=== PATIENT | male | born 1990 ===

== ENCOUNTER 2016-07-10 13:12 | Emergency (ER) | payer MEDICAID ==
[2016-07-10] MEDS ORDERED: Ipratropium 0.02% Inhal Soln (0.5 mg/2.5 ml) UD IH STA ×2 (13:24)
[2016-07-10] MEDS ORDERED: guaiFENesin 200 mg/10 ml Syrup UD PO STA (13:24)
[2016-07-10] MEDS ORDERED: Levalbuterol 1.25 MG/3 ML Inhal Soln UD IH STA ×3 (13:24→16:11)
[2016-07-10 13:28] VITALS: TEMP 98.8
--- NOTE | 2016-07-10 13:31 | ED PDOC ---
Arrival/HPI - General Time Seen by Provider: 07/10/16 13:19 Historian: Patient - History of Present Illness Narrative History of Present Illness (Text): 07/10/16 13:33 A 25 year old male, whose past medical history includes asthma, presents to the emergency department complaining of shortness of breath and cough and chest tightness that feels like previous asthma symptoms, about 2 hours ago. Patient reports some nausea, runny nose and allergies but denies any fever, vomiting, abdominal pain or any other complaints at this time. Patient notes he is a smoker, but denies any drug use. Time/Duration: 1-3 hours Symptom Onset: Sudden Symptom Course: Unchanged Activities at Onset: Rest Context: Home Associated Symptoms (Text): nausea, runny nose Past Medical History - Provider Review Nursing Documentation Reviewed: Yes Family/Social History - Physician Review Nursing Documentation Reviewed: Yes Family/Social History: No Known Family HX Allergies/Home Meds Allergies/Adverse Reactions: Allergies No Known Allergies Allergy (Verified 07/10/16 13:28) Review of Systems - Physician Review All systems were reviewed & negative as marked: Yes - Review of Systems Constitutional: absent: Fevers ENT: Rhinorrhea Respiratory: SOB, Cough Cardiovascular: Other (chest tightness) Gastrointestinal: Nausea. absent: Abdominal Pain, Vomiting Musculoskeletal: Back Pain (chronic) Physical Exam Vital Signs Reviewed: Yes Vital Signs Temp Pulse Resp BP Pulse Ox 07/10/16 15:13 102 H 18 125/71 97 07/10/16 13:26 22 07/10/16 13:24 98.8 F 122 H 20 130/67 100 07/10/16 13:13 22 Temperature: Afebrile Blood Pressure: Normal Pulse: Tachycardic Respiratory Rate: Normal Appearance: Positive for: Well-Appearing, Non-Toxic, Comfortable Pain Distress: None Mental Status: Positive for: Alert and Oriented X 3 - Systems Exam Head: Present: Atraumatic, Normocephalic Pupils: Present: PERRL Extroacular Muscles: Present: EOMI Conjunctiva: Present: Normal Mouth: Present: Moist Mucous Membranes Neck: Present: Normal Range of Motion Respiratory/Chest: Present: Decreased Breath Sounds, Other (slightly diminished air entry) Cardiovascular: Present: Tachycardic. No: Murmurs Abdomen: Present: Normal Bowel Sounds. No: Tenderness, Distention, Peritoneal Signs Back: Present: Normal Inspection Upper Extremity: Present: Normal Inspection. No: Cyanosis, Edema Lower Extremity: Present: Normal Inspection. No: Edema Neurological: Present: GCS=15, CN II-XII Intact, Speech Normal Skin: Present: Warm, Dry, Normal Color. No: Rashes Psychiatric: Present: Alert, Oriented x 3, Normal Insight, Normal Concentration Medical Decision Making ED Course and Treatment: 07/10/16 13:30 Impression: A 25 year old male with shortness of breath, cough and chest tightness. Differential Diagnosis included but are not limited to: asthma exacerbation vs. allergies vs. bronchitis Plan: -- chest xray -- Atrovent, Robitussin, Xopenex, Prednisone -- Reassess and disposition Progress Notes: Chest X-ray: Creator : Raghavendra Willams MD 07/10/2016 14:53 IMPRESSION: No focal airspace opacity. 07/10/16 16:41 Patient later complained of his chronic low back pain acting up - given toradol and diazepam and reports improvement. Respiratory - christianson, the patient feels much better with good air entry now and lungs are CTA b/L - ok for d.c on prednisone and albuterol as well as nsaid and muscle relaxant for back. - RAD Interpretation Radiology Orders: 07/10/16 13:25 CHEST TWO VIEWS (PA/LAT) [RAD] Stat - Medication Orders Current Medication Orders: Discontinued Medications Diazepam (Valium) 5 mg PO ONCE ONE Stop: 07/10/16 15:43 Last Admin: 07/10/16 16:17 Dose: 5 mg Guaifenesin (Robitussin) 400 mg PO ONCE STA Stop: 07/10/16 13:25 Last Admin: 07/10/16 13:30 Dose: 400 mg Ipratropium [place] (Atrovent) 0.5 mg IH STAT STA Stop: 07/10/16 13:25 Last Admin: 07/10/16 13:30 Dose: 0.5 mg Ipratropium [place] (Atrovent) 0.5 mg IH STAT STA Stop: 07/10/16 13:25 Last Admin: 07/10/16 13:30 Dose: 0.5 mg Ketorolac Tromethamine (Toradol) 60 mg IM STAT STA Stop: 07/10/16 15:43 Last Admin: 07/10/16 16:16 Dose: 60 mg Levalbuterol HCl (Xopenex) 1.25 mg IH STAT STA Stop: 07/10/16 13:25 Last Admin: 07/10/16 13:40 Dose: 1.25 mg Levalbuterol HCl (Xopenex) 1.25 mg IH STAT STA Stop: 07/10/16 13:25 Last Admin: 07/10/16 13:40 Dose: 1.25 mg Levalbuterol HCl (Xopenex) 1.25 mg IH STAT STA Stop: 07/10/16 16:12 Last Admin: 07/10/16 16:32 Dose: 1.25 mg Prednisone (Prednisone Tab) 40 mg PO STAT STA Stop: 07/10/16 13:25 Last Admin: 07/10/16 13:56 Dose: 40 mg - Scribe Statement The provider has reviewed the documentation as recorded by the Dia Joyce Provider Scribe Attestation: All medical record entries made by the Ledyibcatia were at my direction and personally dictated by me. I have reviewed the chart and agree that the record accurately reflects my personal performance of the history, physical exam, medical decision making, and the department course for this patient. I have also personally directed, reviewed, and agree with the discharge instructions and disposition. Disposition/Present on Arrival - Present on Arrival Any Indicators Present on Arrival: No - Disposition Have Diagnosis and Disposition been Completed?: Yes Diagnosis: Asthma exacerbation, Back strain Disposition: HOME/ ROUTINE Disposition Time: 16:45 Patient Plan: Discharge Condition: GOOD Discharge Instructions (ExitCare): Asthma (ED), Acute Low Back Pain (ED), How to Stop Smoking (ED) Additional Instructions: Avoid heavy lifting. Take the medications as prescribed. Stop smoking. Follow up with your primary care doctor. Return to the emergency department if any new concerning symptoms. Prescriptions: Albuterol 0.083% [Albuterol 0.083% Inhal [place] (2.5 mg/3 ml) UD] 2.5 mg IH Q4H PRN #25 neb PRN Reason: Shortness Of Breath Albuterol HFA [Ventolin HFA 90 mcg/actuation (8 g)] 2 puff IH Q4H #1 inhaler Baclofen [Lioresal] 1 tab PO TID PRN #15 tab PRN Reason: Pain, Moderate (4-7) Naproxen [Naprosyn] 500 mg PO BID PRN #20 tab PRN Reason: Pain predniSONE [Prednisone] 2 tab PO DAILY #10 tab Referrals: Ari Askew MD [Primary Care Provider] - Follow up with primary Forms: WORK NOTE
--- NOTE | 2016-07-10 14:52 | RAD ---
HISTORY: sob COMPARISON: No prior. TECHNIQUE: Chest PA and lateral FINDINGS: LUNGS: No focal airspace opacity. PLEURA: No significant pleural effusion identified. No pneumothorax apparent. CARDIOVASCULAR: Normal. OSSEOUS STRUCTURES: No significant abnormalities. VISUALIZED UPPER ABDOMEN: Normal. OTHER FINDINGS: None. IMPRESSION: No focal airspace opacity.
[2016-07-10 15:25] VITALS: RESP 18
[2016-07-10 17:09] VITALS: BP 123/68; PULSE 91; O2SAT 98
== END 2016-07-10 17:26 | disposition home or self-care (01) ==
LOC: MERGE 13:12 → ED 13:12
DX: J45.901 Unspecified asthma with (acute) exacerbation (principal); S39.012A Strain of muscle, fascia and tendon of lower back, initial encounter; X58.XXXA Exposure to other specified factors, initial encounter; Y92.009 Unspecified place in unspecified non-institutional (private) residence as the place of occurrence of the external cause
CPT/HCPCS: 71020; 96372; 99285; J1885

== ENCOUNTER 2017-04-18 00:50 | Emergency (ER) | payer MEDICAID ==
[2017-04-18 01:15] VITALS: BP 121/79; PULSE 92; RESP 18; TEMP 100.3; O2SAT 100
[2017-04-18] MEDS ORDERED: Sodium Chloride 0.9% 500 ML IV STA (01:59)
--- NOTE | 2017-04-18 01:59 | ED PDOC ---
Arrival/HPI - General Historian: Patient EM Caveat: Unstable Vital Signs - History of Present Illness Time/Duration: > week Symptom Onset: Gradual Symptom Course: Unchanged Quality: Aching Severity Level: Mild Activities at Onset: Rest, Light Context: Home, Work <Hina Hannon - Last Filed: 04/18/17 02:06> <Valdo Kamara - Last Filed: 04/18/17 03:46> - General Chief Complaint: Medical Clearance Time Seen by Provider: 04/18/17 01:25 - Critical Care Narrative Critical Care (Text): 04/18/17 01:53 Pt is a 26 year old male c/o subjective fever, body aches, vomiting and sore throat over the past week and half with no change in symptoms. Pt states he not been able to keep food down for long and continues to have general abdominal pain without radiation of pain. Denies chest pain, shortness of breath, diarrhea , change in urine or bowel. Did not receive the flu vaccine this year. PMD is in [place], [place] 04/18/17 02:06 (Hina Hannon) Past Medical History - Provider Review Nursing Documentation Reviewed: Yes - Travel History Have you recently traveled outside [place] w/in the past 3 mons?: No - Past History Past History: No Previous - Infectious Disease Hx of Infectious Diseases: None - Pulmonary Hx Asthma: Yes - Neurological Hx Neurological Disorder: No - HEENT Hx HEENT Disorder: No - Renal Hx Renal Disorder: No - Endocrine/Metabolic Hx Endocrine Disorders: No - Hematological/Oncological Hx Blood Disorders: No - Integumentary Hx Dermatological Disorder: No - Musculoskeletal/Rheumatological Hx Musculoskeletal Disorders: No - Gastrointestinal Other/Comment: Stomach virus - Genitourinary/Gynecological Hx Genitourinary Disorders: No - Psychiatric Hx Psychophysiologic Disorder: No Hx Substance Use: Yes (opiates x2 days ago) - Anesthesia Hx Anesthesia: No <Hina Hannon - Last Filed: 04/18/17 02:06> Family/Social History - Physician Review Nursing Documentation Reviewed: Yes Family/Social History: Unknown Family HX Smoking Status: Light Smoker < 10 Cigarettes Daily Hx Alcohol Use: Yes Frequency of alcohol use: Socially Hx Substance Use: Yes (opiates x2 days ago) <Hina Hannon - Last Filed: 04/18/17 02:06> Allergies/Home Meds <ParvezHina - Last Filed: 04/18/17 02:06> <Valdo Kamara - Last Filed: 04/18/17 03:46> Allergies/Adverse Reactions: Allergies No Known Allergies Allergy (Verified 04/18/17 01:09) Review of Systems - Physician Review All systems were reviewed & negative as marked: Yes - Review of Systems Constitutional: Fatigue Eyes: Normal ENT: Normal Respiratory: Cough Cardiovascular: Normal Gastrointestinal: Abdominal Pain, Nausea, Vomiting Genitourinary Male: Normal Musculoskeletal: Normal Skin: Normal Neurological: Normal Endocrine: Normal Hemo/Lymphatic: Normal Psychiatric: Normal <ParvezZeyneph L - Last Filed: 04/18/17 02:06> Physical Exam Vital Signs Reviewed: Yes Temperature: Febrile Blood Pressure: Normal Pulse: Regular Respiratory Rate: Normal Appearance: Positive for: Non-Toxic, Uncomfortable Pain Distress: Mild Mental Status: Positive for: Alert and Oriented X 3 - Systems Exam Head: Present: Atraumatic, Normocephalic Extroacular Muscles: Present: EOMI Conjunctiva: Present: Normal Mouth: Present: Moist Mucous Membranes Pharnyx: Present: ERYTHEMA Neck: Present: Normal Range of Motion Respiratory/Chest: Present: Clear to Auscultation, Good Air Exchange. No: Respiratory Distress, Accessory Muscle Use Cardiovascular: Present: Regular Rate and Rhythm, Normal S1, S2. No: Murmurs Abdomen: Present: Tenderness, Normal Bowel Sounds, Guarding. No: Distention, Peritoneal Signs Back: Present: Normal Inspection Upper Extremity: Present: Normal Inspection. No: Cyanosis, Edema Lower Extremity: Present: Normal Inspection. No: Edema Neurological: Present: GCS=15, CN II-XII Intact, Speech Normal Skin: Present: Warm, Dry, Normal Color. No: Rashes Psychiatric: Present: Alert, Oriented x 3, Normal Insight, Normal Concentration <ParvezZeynephenok Humphrey - Last Filed: 04/18/17 02:06> Vital Signs Temp Pulse Resp BP Pulse Ox 04/18/17 01:10 100.3 F H 92 H 18 121/79 100 Medical Decision Making <ParvezHina L - Last Filed: 04/18/17 02:06> Reassessment Condition: Improved - Lab Interpretations I have reviewed the lab results: Yes <Valdo Kamara - Last Filed: 04/18/17 03:46> ED Course and Treatment: 04/18/17 01:56 Impression Pt is a 26 year old male c/o subjective fever, body aches, dry cough and vomiting over the past week and half. On exam, lungs clear to auscultation bilateral, voluntary guarding of abdomen on palpation, well nourished male Plan Labs, UA Tylenol for fever zofran 4 mg fluids Assess and dispo Progress Note (Hina Hannon) 04/18/17 02:43 you had symptoms of fever, body aches, vomiting and sore throat over the past week and half with no change in symptoms. not been able to keep food down for long and continues to have general abdominal pain without radiation of pain. Denies chest pain, shortness of breath, diarrhea, change in urine or bowel. Did not receive the flu vaccine this year. PMD is in [place], [place]. You were otherwise breathing easily, pink moist lips, talkling easily, good strength/ sensation, alert/oriented, walking easily, clear lungs, no abdomen tenderness, initial low grade fever temp 100.3 and repeat 98.9, stable heart rate 92, stable breathing rate 18, excellent oxygen level 100% room air, elevated blood pressure 121/79 which we recommend repeat in 2-3 days primary care office to determine further treatment, you have blood tests no infection count 5, stable blood level hemoglobin 11/platelets 204, stable chemistry, influenza test negative, tylenol, tamiflu, intravenous fluids, observation done in the ED with improvement, counselled to drink lots of fluids and thus discharged home. 1. Recommend rest. 2. Recommend tamiflu as directed fo flu-like symptoms. 3. Recommend follow-up primary care 2-3 days to review symptoms. 4. If any worsening pain, fever, chills, nausea, vomiting, difficulty breathing, numbness , loss of limb function, pain with urination or any medical condition then return to the ED. 04/18/17 03:31 04/18/17 03:31 04/18/17 03:32 04/18/17 03:43 (Abhilash Kamarain) - Lab Interpretations Lab Results: 04/18/17 01:40 04/18/17 01:40 Lab Results 04/18/17 02:50: Influenza Typ A,B (EIA) Negative for flu a/b 04/18/17 01:50: Urine Color Yellow, Urine Appearance Clear, Urine pH 6.0, Ur Specific [place] 1.025, Urine Protein Trace H, Urine Glucose (UA) Negative, Urine Ketones Trace H, Urine Blood Negative, Urine Nitrate Negative, Urine Bilirubin Negative, Urine Urobilinogen 1.0 H, Ur Leukocyte Esterase Negative, Urine RBC 0 - 2, Urine WBC 1 - 3, Ur Epithelial Cells 0 - 2, Urine Other Mucus 04/18/17 01:40: Sodium 143, Potassium 4.0, Chloride 106, Carbon Dioxide 26, Anion Gap 14, BUN 10, Creatinine 1.1, Est GFR ( Amer) > 60, Est GFR (Non- Af Amer) > 60, Random Glucose 106, Calcium 9.3, Total Bilirubin 0.8, AST 29, ALT 30, Alkaline Phosphatase 52, Total Protein 7.0, Albumin 4.1, Globulin 2.8, Albumin/Globulin Ratio 1.5 04/18/17 01:40: WBC 5.2, RBC 5.07, Hgb 11.7 L, Hct 37.0 L, MCV 73.0 L, MCH 23.1 L, MCHC 31.6, RDW 13.2, Plt Count 204, MPV 10.0, Gran % 66.7, Lymph % (Auto) 15.1 L, [place] % (Auto) 17.6 H, Eos % (Auto) 0.4 L, Baso % (Auto) 0.2, Gran # 3.44 , Lymph # (Auto) 0.8 L, [place] # (Auto) 0.9 H, Eos # (Auto) 0.0, Baso # (Auto) 0.01 - Medication Orders Current Medication Orders: Discontinued Medications Acetaminophen (Tylenol 325mg Tab) 975 mg PO STAT STA Stop: 04/18/17 01:34 Last Admin: 04/18/17 01:47 Dose: 975 mg Sodium Chloride (Sodium Chloride 0.9%) 500 mls @ 999 mls/hr IV .Q31M STA Stop: 04/18/17 02:29 Last Admin: 04/18/17 02:12 Dose: 999 mls/hr eMAR Start Stop Document 04/18/17 02:12 CNR (Rec: 04/18/17 02:12 CNR [id number]) Intravenous Solution Start Date 04/18/17 Start Time 02:12 Ondansetron HCl (Zofran Inj) 4 mg IVP STAT STA Stop: 04/18/17 02:00 Last Admin: 04/18/17 02:12 Dose: 4 mg IVP Administration Document 04/18/17 02:12 CNR (Rec: 04/18/17 02:12 CNR [id number]) Charges for Administration # of IVP Administrations 1 Disposition/Present on Arrival - Present on Arrival Any Indicators Present on Arrival: Yes History of DVT/PE: No History of Uncontrolled Diabetes: No Urinary Catheter: No History of Decub. Ulcer: No History Surgical Site Infection Following: None <Hina Hannon - Last Filed: 04/18/17 02:06> - Present on Arrival Any Indicators Present on Arrival: No - Disposition Have Diagnosis and Disposition been Completed?: Yes Disposition Time: 03:45 Patient Plan: Discharge <Valdo Kamara - Last Filed: 04/18/17 03:46> - Disposition Diagnosis: Viral syndrome Disposition: HOME/ ROUTINE Condition: IMPROVED Additional Instructions: you had symptoms of fever, body aches, vomiting and sore throat over the past week and half with no change in symptoms. not been able to keep food down for long and continues to have general abdominal pain without radiation of pain. Denies chest pain, shortness of breath, diarrhea, change in urine or bowel. Did not receive the flu vaccine this year. PMD is in [place], [place]. You were otherwise breathing easily, pink moist lips, talkling easily, good strength/ sensation, alert/oriented, walking easily, clear lungs, no abdomen tenderness, initial low grade fever temp 100.3 and repeat 98.9, stable heart rate 92, stable breathing rate 18, excellent oxygen level 100% room air, elevated blood pressure 121/79 which we recommend repeat in 2-3 days primary care office to determine further treatment, you have blood tests no infection count 5, stable blood level hemoglobin 11/platelets 204, stable chemistry, influenza test negative, tylenol, tamiflu, intravenous fluids, observation done in the ED with improvement, counselled to drink lots of fluids and thus discharged home. 1. Recommend rest. 2. Recommend tamiflu as directed fo flu-like symptoms. 3. Recommend follow-up primary care 2-3 days to review symptoms. 4. If any worsening pain, fever, chills, nausea, vomiting, difficulty breathing, numbness , loss of limb function, pain with urination or any medical condition then return to the ED. Prescriptions: Oseltamivir [Tamiflu] 75 mg PO Q12 5 Days #10 cap Forms: [facility] [facility] ([place]), WORK NOTE
[2017-04-18 02:00] LABS: BASO # 0.01 K/mm3 (0.0-2.0); BASO % 0.2 % (0.0-3.0); EOS % 0.4 % (1.5-5.0); GRAN # 3.44 (1.4-6.5); GRAN % 66.7 % (50.0-68.0); HEMOGLOBIN 11.7 g/dL (14.0-18.0); LYMPH # 0.8 (1.2-3.4); LYMPH % 15.1 % (22.0-35.0); MEAN CORPUSCULAR HEMOGLOBIN 23.1 pg (25.0-35.0); MEAN CORPUSCULAR HGB CONC 31.6 g/dl (31.0-37.0); MONO # 0.9 (0.1-0.6); MONO % 17.6 % (1.0-6.0); RBC 5.07 10^6/uL (3.5-6.1); RED CELL DISTRIBUTION WIDTH 13.2 % (11.5-14.5); WHITE BLOOD COUNT 5.2 10^3/ul (4.5-11.0)
[2017-04-18 02:06] LABS: URINE BILIRUBIN NEGATIVE (NEGATIVE); URINE BLOOD NEGATIVE (NEGATIVE); URINE GLUCOSE (UA) NEGATIVE (NEGATIVE); URINE LEUKOCYTE ESTERASE NEGATIVE Leu/uL (NEGATIVE); URINE NITRATE NEGATIVE (NEGATIVE); URINE PROTEIN TRACE mg/dL (<30 mg/dL)
[2017-04-18 02:08] LABS: URINE APPEARANCE CLEAR (CLEAR); URINE COLOR YELLOW (YELLOW)
[2017-04-18 02:13] LABS: ALB/GLOB RATIO 1.5 (1.1-1.8); ALBUMIN 4.1 g/dL (3.0-4.8); ALT/SGPT 30 U/L (7-56); AST/SGOT 29 U/L (17-59); BLOOD UREA NITROGEN 10 mg/dL (7-21); CALCIUM 9.3 mg/dL (8.4-10.5); GFR AFRICAN-AMERICAN > 60; GFR NON-AFRICAN AMERICAN > 60
[2017-04-18 02:23] LABS: URINE EPITHELIAL CELLS 0 - 2 /hpf (0-5); URINE RBC 0 - 2 /hpf (0-2)
== END 2017-04-18 03:56 | disposition home or self-care (01) ==
LOC: ED 00:50
DX: B34.9 Viral infection, unspecified (principal); F17.210 Nicotine dependence, cigarettes, uncomplicated
CPT/HCPCS: 80053; 81001; 85025; 87804; 96374; 99282; J2405; J7040

== ENCOUNTER 2017-11-12 17:51 | Emergency (ER) | payer MEDICAID ==
[2017-11-12] MEDS ORDERED: Sodium Chloride 0.9% 1,000 ML IV STA ×2 (18:20→18:41)
[2017-11-12 19:22] LABS: BASO # 0.01 K/mm3 (0.0-2.0); BASO % 0.2 % (0.0-3.0); EOS % 0.2 % (1.5-5.0); GRAN # 4.9 (1.4-6.5); GRAN % 86.2 % (50.0-68.0); HEMOGLOBIN 11.3 g/dL (14.0-18.0); LYMPH # 0.4 (1.2-3.4); LYMPH % 6.5 % (22.0-35.0); MEAN CELL VOLUME 73.2 fl (80.0-105.0); MEAN CORPUSCULAR HEMOGLOBIN 23.7 pg (25.0-35.0); MEAN CORPUSCULAR HGB CONC 32.4 g/dl (31.0-37.0); MEAN PLATELET VOLUME 9.7 fl (7.0-11.0); MONO # 0.4 (0.1-0.6); MONO % 6.9 % (1.0-6.0); RBC 4.77 10^6/uL (3.5-6.1); RED CELL DISTRIBUTION WIDTH 13.4 % (11.5-14.5); WHITE BLOOD COUNT 5.7 10^3/ul (4.5-11.0)
[2017-11-12 19:25] LABS: ALB/GLOB RATIO 1.3 (1.1-1.8); ALBUMIN 4.2 g/dL (3.0-4.8); ALT/SGPT 71 U/L (7-56); AST/SGOT 51 U/L (17-59); BLOOD UREA NITROGEN 11 mg/dL (7-21); CALCIUM 8.8 mg/dL (8.4-10.5); GFR NON-AFRICAN AMERICAN > 60; LIPASE 60 U/L (23-300)
[2017-11-12] MEDS ORDERED: Iohexol 350 MG/100 ML VIAL ONE (19:38)
--- NOTE | 2017-11-12 19:52 | ED PDOC ---
Arrival/HPI - General Chief Complaint: Substance Abuse Time Seen by Provider: 11/12/17 18:19 Historian: Patient - History of Present Illness Narrative History of Present Illness (Text): 11/12/17 19:44 27-year-old male presents today with nausea vomiting abdominal pain and body aches and fatigue. Patient admits to using heroin this morning. Patient states he was in a methadone clinic and left a methadone clinic 2 weeks ago. Patient states since then he has been intermittently using heroin. Patient states his last use was this morning. pt denies trauma or injury. Past Medical History - Provider Review Nursing Documentation Reviewed: Yes - Travel History Have you recently traveled outside [place] w/in the past 3 mons?: No - Past History Past History: No Previous - Infectious Disease Hx of Infectious Diseases: None - Pulmonary Hx Asthma: Yes - Neurological Hx Neurological Disorder: No - HEENT Hx HEENT Disorder: No - Renal Hx Renal Disorder: No - Endocrine/Metabolic Hx Endocrine Disorders: No - Hematological/Oncological Hx Blood Disorders: No - Integumentary Hx Dermatological Disorder: No - Musculoskeletal/Rheumatological Hx Musculoskeletal Disorders: No - Gastrointestinal Other/Comment: Stomach virus - Genitourinary/Gynecological Hx Genitourinary Disorders: No - Psychiatric Hx Psychophysiologic Disorder: No Hx Substance Use: Yes - Anesthesia Hx Anesthesia: No Family/Social History - Physician Review Nursing Documentation Reviewed: Yes Family/Social History: Unknown Family HX Smoking Status: Light Smoker < 10 Cigarettes Daily Hx Alcohol Use: Yes Hx Substance Use: Yes Substance used: heroin Allergies/Home Meds Allergies/Adverse Reactions: Allergies No Known Allergies Allergy (Verified 04/18/17 01:09) Review of Systems - Review of Systems Constitutional: Fatigue. absent: Fevers Respiratory: absent: SOB, Cough Cardiovascular: absent: Chest Pain, Palpitations Gastrointestinal: Abdominal Pain, Nausea, Vomiting Genitourinary Male: absent: Dysuria, Frequency Musculoskeletal: Arthralgias, Back Pain. absent: Neck Pain Skin: absent: Rash, Pruritis Neurological: absent: Headache, Dizziness Psychiatric: absent: Anxiety, Depression, Suicidal Ideation Physical Exam Vital Signs Reviewed: Yes Vital Signs Temp Pulse Resp BP Pulse Ox 11/12/17 18:32 98.7 F 80 20 127/77 100 11/12/17 17:58 99.7 F H 104 H 20 94/50 L 97 Temperature: Afebrile Blood Pressure: Hypotensive Pulse: Tachycardic Respiratory Rate: Normal Appearance: Positive for: Well-Appearing, Non-Toxic, Comfortable Pain Distress: None Mental Status: Positive for: Alert and Oriented X 3 - Systems Exam Head: Present: Atraumatic Mouth: Present: Moist Mucous Membranes Neck: Present: Normal Range of Motion Respiratory/Chest: Present: Clear to Auscultation, Good Air Exchange. No: Respiratory Distress, Accessory Muscle Use Cardiovascular: Present: Regular Rate and Rhythm, Normal S1, S2. No: Murmurs Abdomen: Present: Tenderness (minimal lower abdominal tenderness). No: Distention, Rebound, Guarding Back: Present: Normal Inspection Upper Extremity: Present: Normal ROM Lower Extremity: Present: Normal ROM Neurological: Present: GCS=15, Speech Normal Skin: Present: Warm, Dry, Normal Color. No: Rashes Psychiatric: Present: Alert, Oriented x 3 Medical Decision Making ED Course and Treatment: 11/12/17 20:33 27yr old male with bodyaches, abdominal pain, nausea/vomiting. hx of heroin use this morning. states he hasnt been going to methadone clinic for 2 weeks and thinks hes withdrawing. cbc; wnl cmp; wnl cxr; wnl lactate; 0.8 ekg; NSR at 83b/m no st elevations. normal axis normal intervals. 11/12/17 pt feeling much better. vitals stable. wants to go home. pt was seen by LYUDMILA scott and was given information to methadone clinics closer to his house. ct abd/pelvis; FINDINGS: Lung bases: Unremarkable. No mass. No consolidation. ABDOMEN: Liver: Unremarkable. No mass. Gallbladder and bile ducts: Unremarkable. No calcified stones. No ductal dilation. Pancreas: Unremarkable. No mass. No ductal dilation. Spleen: Unremarkable. No splenomegaly. Adrenals: Unremarkable. No mass. Kidneys and ureters: Unremarkable. No solid mass. No hydronephrosis. Stomach and bowel: Unremarkable. No obstruction. No mucosal thickening. PELVIS: Appendix: Normal appendix. Bladder: Unremarkable. No mass. Reproductive: Unremarkable as visualized. ABDOMEN and PELVIS: Intraperitoneal space: Unremarkable. No free air. No significant fluid collection. Bones/joints: No fracture. No dislocation. Soft tissues: Unremarkable. Vasculature: Unremarkable. No abdominal aortic aneurysm. Lymph nodes: Unremarkable. No enlarged lymph nodes. IMPRESSION: Normal abdomen and pelvis pt reassessment; non toxic well appearing; vitals stable. will d/c home with motrin and zofran. advised f/u with pmd, GI and methadone clinic. advised immediate return if symptoms worsen,persist or if new symptoms develop. Patient verbalizes understanding of discharge instructions and need for immediate followup. all aspects of this case were discussed the attending of record. impression; abdominal pain, substance abuse increase fluids tylenol every 4 hours as needed for pain/fever reduction motrin every 6 hours as needed for pain zofran every 8 hours as needed for nausea/vomiting. follow up with the primary care physician within the next 2 days follow up with the GI specialist within the next 2 days follow up with outpatient methadone clinic. return if symptoms worsen, persist or if new symptoms develop. - Lab Interpretations Lab Results: 11/12/17 19:10 11/12/17 19:10 Lab Results 11/12/17 20:14: pO2 53, VBG pH 7.40, VBG pCO2 44.0, VBG HCO3 27.3, VBG Total CO2 28.7 H, VBG O2 Sat (Calc) 92.1 H, VBG Base Excess 2.0, VBG Potassium 3.7, Glucose 143 H, Lactate 0.8, FiO2 21.0, Sodium 136.0, Chloride 104.0, Venous Blood Potassium 3.7 11/12/17 19:10: WBC 5.7, RBC 4.77, Hgb 11.3 L, Hct 34.9 L, MCV 73.2 L, MCH 23.7 L, MCHC 32.4, RDW 13.4, Plt Count 146, MPV 9.7, Gran % 86.2 H, Lymph % (Auto) 6.5 L, [place] % (Auto) 6.9 H, Eos % (Auto) 0.2 L, Baso % (Auto) 0.2, Gran # 4.90, Lymph # (Auto) 0.4 L, [place] # (Auto) 0.4, Eos # (Auto) 0.0, Baso # (Auto) 0.01 11/12/17 19:10: Sodium 138, Potassium 4.0, Chloride 102, Carbon Dioxide 25, Anion Gap 14, BUN 11, Creatinine 0.9, Est GFR ( Amer) > 60, Est GFR (Non- Af Amer) > 60, Random Glucose 109, Calcium 8.8, Total Bilirubin 1.2, AST 51, ALT 71 H, Alkaline Phosphatase 80, Total Protein 7.2, Albumin 4.2, Globulin 3.1 , Albumin/Globulin Ratio 1.3, Lipase 60 - RAD Interpretation Radiology Orders: 11/12/17 18:20 CHEST PORTABLE [RAD] Stat 11/12/17 18:29 ABD & PELVIS IV CONTRAST ONLY [CT] Stat - Medication Orders Current Medication Orders: Discontinued Medications Sodium Chloride (Sodium Chloride 0.9%) 1,000 mls @ 999 mls/hr IV .Q1H1M STA Stop: 11/12/17 19:41 Last Admin: 11/12/17 19:24 Dose: 999 mls/hr eMAR Start Stop Document 11/12/17 19:24 SUDO (Rec: 11/12/17 19:24 [id number] Intravenous Solution Start Date 11/12/17 Start Time 19:24 Ketorolac Tromethamine (Toradol) 30 mg IVP STAT STA Stop: 11/12/17 18:21 Last Admin: 11/12/17 19:13 Dose: 30 mg MAR Pain Assessment Document 11/12/17 19:13 SUDO (Rec: 11/12/17 19:14 [place] [id number]) Pain Reassessment Is this a pain reassessment? No Location Pain Location Body Site Generalized Description Description Constant IVP Administration Document 11/12/17 19:13 SUDO (Rec: 11/12/17 19:14 [place] [id number]) Charges for Administration # of IVP Administrations 1 Ondansetron HCl (Zofran Inj) 4 mg IVP STAT STA Stop: 11/12/17 18:21 Last Admin: 11/12/17 19:13 Dose: 4 mg IVP Administration Document 11/12/17 19:13 SUDO (Rec: 11/12/17 19:13 [id number] Charges for Administration # of IVP Administrations 1 Pantoprazole Sodium (Protonix Inj) 40 mg IVP STAT STA Stop: 11/12/17 18:21 Last Admin: 11/12/17 19:13 Dose: 40 mg IVP Administration Document 11/12/17 19:13 SUDOJ (Rec: 11/12/17 19:13 [place] [id number]) Charges for Administration # of IVP Administrations 1 Disposition/Present on Arrival - Present on Arrival Any Indicators Present on Arrival: No History of DVT/PE: No History of Uncontrolled Diabetes: No Urinary Catheter: No History of Decub. Ulcer: No History Surgical Site Infection Following: None - Disposition Have Diagnosis and Disposition been Completed?: Yes Diagnosis: Abdominal pain, Substance abuse Disposition: HOME/ ROUTINE Disposition Time: 18:30 Patient Plan: Discharge Patient Problems: Current Active Problems Problem Status Onset Abdominal pain Acute Substance abuse Acute Condition: GOOD Discharge Instructions (ExitCare): Acute Abdomen (Belly Pain) Additional Instructions: increase fluids tylenol every 4 hours as needed for pain/fever reduction motrin every 6 hours as needed for pain zofran every 8 hours as needed for nausea/vomiting. follow up with the primary care physician within the next 2 days follow up with the GI specialist within the next 2 days follow up with outpatient methadone clinic. return if symptoms worsen, persist or if new symptoms develop. Prescriptions: Famotidine [Pepcid] 20 mg PO DAILY #30 tab Ibuprofen [Motrin] 600 mg PO Q6H PRN #20 tab PRN Reason: pain/fever reduction Ondansetron [Zofran] 4 mg PO Q8H PRN #10 tab PRN Reason: Nausea/Vomiting Referrals: Jocelyn Lira MD [Medical Doctor] - Follow up with primary [facility] [Outside] - Follow up with primary Destiny Lucero MD [Medical Doctor] - Follow up with primary Forms: [facility] ([place]), WORK NOTE
[2017-11-12 20:23] LABS: VENOUS BLOOD GAS PO2 53 mm/Hg (30-55)
[2017-11-12 20:34] VITALS: TEMP 98.7; O2SAT 100
[2017-11-13] VITALS: BP 129/74; PULSE 85; RESP 18
--- NOTE | 2017-11-13 09:12 | RAD ---
Date of service: 11/12/2017 HISTORY: Abdominal pain COMPARISON: 07/10/2016. FINDINGS: LUNGS: The lungs are well inflated and clear. PLEURA: No significant pleural effusion identified, no pneumothorax apparent. CARDIOVASCULAR: Normal. OSSEOUS STRUCTURES: No significant abnormalities. VISUALIZED UPPER ABDOMEN: Normal. OTHER FINDINGS: None. IMPRESSION: No active pulmonary disease.
--- NOTE | 2017-11-13 10:28 | CT ---
Date of service: 11/12/2017 PROCEDURE: CT Abdomen and Pelvis with contrast HISTORY: abd pain COMPARISON: None. TECHNIQUE: Contrast dose: 100 cc of Omni 350 Radiation dose: Total exam DLP = 637 mGy-cm. This CT exam was performed using one or more of the following dose reduction techniques: Automated exposure control, adjustment of the mA and/or kV according to patient size, and/or use of iterative reconstruction technique. FINDINGS: LOWER THORAX: Unremarkable. LIVER: Unremarkable. No gross lesion or ductal dilatation. GALLBLADDER AND BILE DUCTS: Contracted gallbladder PANCREAS: Unremarkable. No gross lesion or ductal dilatation. SPLEEN: Unremarkable. ADRENALS: Unremarkable. No mass. KIDNEYS AND URETERS: Unremarkable. No hydronephrosis. No solid mass. VASCULATURE: Unremarkable. No aortic aneurysm. BOWEL: Unremarkable. No obstruction. No gross mural thickening. APPENDIX: Normal appendix. PERITONEUM: Unremarkable. No free fluid. No free air. LYMPH NODES: Unremarkable. No enlarged lymph nodes. BLADDER: Unremarkable. REPRODUCTIVE: Unremarkable. BONES: No acute fracture. OTHER FINDINGS: The report concurs with the preliminary [facility] report IMPRESSION: No acute findings
--- NOTE | 2017-11-13 15:23 | CARD ---
APPROVED REPORT Date of service: 11/12/2017 EKG Measurement Heart [id number] <Conclusion> Normal sinus rhythm Normal ECG
== END 2017-11-12 22:40 | disposition home or self-care (01) ==
LOC: ED 17:51
DX: F19.10 Other psychoactive substance abuse, uncomplicated (principal); R10.9 Unspecified abdominal pain
CPT/HCPCS: 71045; 74177; 80053; 82803; 83690; 85025; 93005; 96374; 96375; 99284; C9113; J1885; J2405; J7030; Q9967

== ENCOUNTER 2017-12-13 19:47 | Inpatient (IN) | payer MEDICAID ==
[2017-12-13] MEDS ORDERED: Vancomycin 500 mg Inj IVPB STA (20:29)
--- NOTE | 2017-12-13 20:33 | ED PDOC ---
Arrival/HPI - General Chief Complaint: Upper Extremity Problem/Injury Time Seen by Provider: 12/13/17 20:28 Historian: Patient - History of Present Illness Narrative History of Present Illness (Text): 12/13/17 20:58 27 year old male, whose past medical history includes IVDA(heroin), presents to the emergency department complaining of worsening left arm abscess for the past month associated with swelling and purulent drainage. Patient admits to injecting heroin to the left AC approximately 1.5 months ago before starting his drug rehab program. Patient reports taking medication for pain with no relief. Patient denies any fever, chills, chest pain, shortness of breath, nausea, vomiting, diarrhea, back pain, neck pain, headache, dizziness, or any other complaints. PMD: Dr. Henry Time/Duration: Other (month) Symptom Onset: Gradual Symptom Course: Worsening Activities at Onset: Light Context: Home Past Medical History - Provider Review Nursing Documentation Reviewed: Yes - Past History Past History: No Previous - Infectious Disease Hx of Infectious Diseases: None - Pulmonary Hx Asthma: Yes - Neurological Hx Neurological Disorder: No - HEENT Hx HEENT Disorder: No - Renal Hx Renal Disorder: No - Endocrine/Metabolic Hx Endocrine Disorders: No - Hematological/Oncological Hx Blood Disorders: No - Integumentary Hx Dermatological Disorder: No - Musculoskeletal/Rheumatological Hx Musculoskeletal Disorders: No - Gastrointestinal Other/Comment: Stomach virus - Genitourinary/Gynecological Hx Genitourinary Disorders: No - Psychiatric Hx Psychophysiologic Disorder: No Hx Substance Use: Yes (clean for 30 days) - Anesthesia Hx Anesthesia: No Family/Social History - Physician Review Nursing Documentation Reviewed: Yes Family/Social History: No Known Family HX Smoking Status: Light Smoker < 10 Cigarettes Daily Hx Alcohol Use: Yes Frequency of alcohol use: Few days per week Hx Substance Use: Yes (clean for 30 days) Substance used: heroin, cocaine, weed Allergies/Home Meds Allergies/Adverse Reactions: Allergies No Known Allergies Allergy (Verified 12/13/17 20:01) Review of Systems - Physician Review All systems were reviewed & negative as marked: Yes - Review of Systems Constitutional: absent: Fevers, Other (Chills) Respiratory: absent: SOB Cardiovascular: absent: Chest Pain Gastrointestinal: absent: Diarrhea, Nausea, Vomiting Musculoskeletal: absent: Back Pain, Neck Pain Skin: Abscess (left arm) Neurological: absent: Headache, Dizziness Physical Exam - Physical Exam Narrative Physical Exam (Text): Gen: VS reviewed, alert, well developed, well nourished, nontoxic, mild distress. ENT: normal pharynx. Eye: EOMI, PERRL. Neck: no JVD, supple, no adenopathy. CV: regular rate, regular rhythm, no rubs, no murmur, no gallops, S1, S2, pulses equal and strong. Pulm: no distress, clear to auscultation, no wheeze, no rhonchi, breath sounds equal, no rales. Abd: soft, nontender, no guarding, no rebound, no rigidity, normal bowel sounds. Ext: Large area of fluctuant that is at the proximal forearm with extensive area of induration extending up his arm just past the antecubital fossa. Decrease ROM to the left elbow secondary to pain. Warm and tender to touch. Active purulent drainage from an ulcer on the lateral AC area. no edema. Skin: good color, no rash, no cyanosis. Psych: responds appropriately to questions, normal affect. Neuro: oriented x 3, CN2-12 intact grossly, motor intact, sensation intact. Vital Signs Reviewed: Yes Vital Signs Temp Pulse Resp BP Pulse Ox 12/13/17 20:00 99.1 F 102 H 18 142/77 99 Temperature: Afebrile Blood Pressure: Normal Pulse: Tachycardic Respiratory Rate: Normal Medical Decision Making ED Course and Treatment: 12/13/17 20:28 Impression: 27 year old male presents complaining of worsening abscess associated with swelling and purulent drainage for the past month. Plan: -- VBG -- CT Upper Left with contrast -- Toradol, Vancomycin -- Blood culture, wound culture -- Reassess and disposition Prior Visits: Notes and results from previous visits were reviewed. Progress Notes: 12/13/17 20:30 Case discussed with certified surgical technologist who is aware and agrees to come down and consult patient. 12/13/17 23:26 patient seen for extensive arm abscess and cellulitis. no hard signs of nec fasc or compartment syndrome. patient remained stable throughout ED course. surgical consult accepted by dr. coffey and certified surgical technologist has seen the patient at bedside. xray of the arm requested as there is a concern for metallic foreign body seen on CT. patient to be npo after midnight and will need OR for I&D left upper arm abscess. - Critical Care Critical Care Minutes: Other (35 minutes critical care for critical illness and coordination of care) - Scribe Statement The provider has reviewed the documentation as recorded by the Ledyibcatia Medley Provider Scribe Attestation: All medical record entries made by the Scribe were at my direction and personally dictated by me. I have reviewed the chart and agree that the record accurately reflects my personal performance of the history, physical exam, medical decision making, and the department course for this patient. I have also personally directed, reviewed, and agree with the discharge instructions and disposition. Disposition/Present on Arrival - Present on Arrival Any Indicators Present on Arrival: No History of DVT/PE: No History of Uncontrolled Diabetes: No Urinary Catheter: No History of Decub. Ulcer: No History Surgical Site Infection Following: None - Disposition Have Diagnosis and Disposition been Completed?: Yes Diagnosis: Abscess of left arm Disposition: HOSPITALIZED Disposition Time: 23:29 Patient Plan: Admission Condition: STABLE Referrals: Ned Henry MD [Primary Care Provider] - Follow up with primary Forms: [facility] [employer] (Irish)
[2017-12-13] MEDS ORDERED: Vancomycin 1.5 GM in Sodium Chloride 0.9% 500 ML IVPB ONE (20:45)
[2017-12-13 21:10] LABS: VENOUS BLOOD GAS PO2 36 mm/Hg (30-55); VENOUS BLOOD PH 7.32 (7.32-7.43)
[2017-12-13 21:19] LABS: BLOOD UREA NITROGEN 15 mg/dL (7-21); CALCIUM 8.9 mg/dL (8.4-10.5); GFR NON-AFRICAN AMERICAN > 60
[2017-12-13 21:25] LABS: BASO # 0.02 K/mm3 (0.0-2.0); BASO % 0.2 % (0.0-3.0); EOS # 0.1 (0.0-0.7); EOS % 1.4 % (1.5-5.0); GRAN # 5.94 (1.4-6.5); GRAN % 65.8 % (50.0-68.0); HEMOGLOBIN 9.7 g/dL (14.0-18.0); LYMPH # 2.2 (1.2-3.4); LYMPH % 24.7 % (22.0-35.0); MEAN CELL VOLUME 71.9 fl (80.0-105.0); MEAN CORPUSCULAR HEMOGLOBIN 22.1 pg (25.0-35.0); MEAN CORPUSCULAR HGB CONC 30.8 g/dl (31.0-37.0); MEAN PLATELET VOLUME 9.6 fl (7.0-11.0); MONO # 0.7 (0.1-0.6); MONO % 7.9 % (1.0-6.0); RBC 4.38 10^6/uL (3.5-6.1); RED CELL DISTRIBUTION WIDTH 14.7 % (11.5-14.5)
[2017-12-13] MEDS ORDERED: Iohexol 350 MG/100 ML VIAL ONE (21:47)
--- NOTE | 2017-12-13 23:03 | CP.PCM.CON ---
<Zev Fuentes - Last Filed: 12/13/17 22:59> History of Present Illness - History of Present Illness History of Present Illness: General Surgery Consult Note for Dr. Graham This is a 27M with a PMH of polysubstance abuse, he has quit heroin one month ago. He reports that 2 weeks ago he developed an abscess on his left arm. He reports that it is not the first time this has happened. He reports that has has had fevers and chaills at home. It has been spontaneously draining for the past 2 days. PMH: Denies PSH: Denies ALL: Denies Social: + Tobacc, + Heroin, + Cocaine Review of Systems - Review of Systems Review of Systems: 12 point review of symtoms conducted and negative except for fevers chills and extremity pain and skin changes over the left upper extremity. Past Patient History - Infectious Disease Hx of Infectious Diseases: None - Past Social History Smoking Status: Light Smoker < 10 Cigarettes Daily - CARDIAC Hx Hypercholesterolemia: Yes - PULMONARY Hx Asthma: Yes - NEUROLOGICAL Hx Neurological Disorder: No - HEENT Hx HEENT Problems: No - RENAL Hx Chronic Kidney Disease: No - ENDOCRINE/METABOLIC Hx Endocrine Disorders: No - HEMATOLOGICAL/ONCOLOGICAL Hx Blood Disorders: No - INTEGUMENTARY Hx Dermatological Problems: No - MUSCULOSKELETAL/RHEUMATOLOGICAL Hx Musculoskeletal Disorders: No - GASTROINTESTINAL Other/Comment: Stomach virus - GENITOURINARY/GYNECOLOGICAL Hx Genitourinary Disorders: No - PSYCHIATRIC Hx Psychophysiologic Disorder: No Hx Substance Use: Yes (clean for 30 days) - SURGICAL HISTORY Hx Surgeries: No - ANESTHESIA Hx Anesthesia: No Meds Allergies/Adverse Reactions: Allergies Allergy/AdvReac Type Severity Reaction Status Date / Time No Known Allergies Allergy Verified 12/13/17 20:01 - Medications Medications: Current Medications Vancomycin HCl 1.5 gm/ Sodium (Chloride) 500 mls @ 167 mls/hr IVPB ONCE ONE Stop: 12/13/17 23:44 Last Admin: 12/13/17 21:16 Dose: 167 mls/hr Physical Exam - Constitutional Appears: Non-toxic, No Acute Distress - Head Exam Head Exam: ATRAUMATIC, NORMOCEPHALIC - Eye Exam Eye Exam: EOMI, Normal appearance - ENT Exam ENT Exam: Mucous Membranes Moist - Respiratory Exam Respiratory Exam: NORMAL BREATHING PATTERN - Cardiovascular Exam Cardiovascular Exam: +S1, +S2 - GI/Abdominal Exam GI & Abdominal Exam: Soft - Neurological Exam Neurological exam: Alert, Oriented x3 - Psychiatric Exam Psychiatric exam: Normal Affect, Normal Mood - Skin Skin Exam: Dry, Intact Results - Vital Signs Recent Vital Signs: Last Vital Signs Temp 99.1 F 12/13/17 20:00 Pulse 102 H 12/13/17 20:00 Resp 18 12/13/17 20:00 BP 142/77 12/13/17 20:00 Pulse Ox 99 12/13/17 20:00 - Labs Result Diagrams: 12/13/17 21:00 12/13/17 21:00 Labs: Laboratory Results - last 24 hr 12/13/17 12/13/17 12/13/17 21:00 21:00 21:00 WBC 9.0 D RBC 4.38 Hgb 9.7 L Hct 31.5 L MCV 71.9 L MCH 22.1 L MCHC 30.8 L RDW 14.7 H Plt Count 555 H MPV 9.6 Gran % 65.8 Lymph % (Auto) 24.7 [place] % (Auto) 7.9 H Eos % (Auto) 1.4 L Baso % (Auto) 0.2 Gran # 5.94 Lymph # (Auto) 2.2 [place] # (Auto) 0.7 H Eos # (Auto) 0.1 Baso # (Auto) 0.02 pO2 36 VBG pH 7.32 VBG pCO2 62.0 H VBG HCO3 31.9 H VBG Total CO2 33.8 H VBG O2 Sat (Calc) 68.9 H VBG Base Excess 4.0 H VBG Potassium 4.0 Sodium 139.0 140 Chloride 105.0 102 Glucose 92 Lactate 0.9 FiO2 21.0 Potassium 4.3 Carbon Dioxide 29 Anion Gap 13 BUN 15 Creatinine 1.0 Est GFR ( Amer) > 60 Est GFR (Non-Af Amer) > 60 Random Glucose 97 Calcium 8.9 Venous Blood Potassium 4.0 Assessment & Plan - Assessment and Plan (Free Text) Assessment: This is a 27M IVDA with a LUE abscess NPO past midnight OR in AM Continue ABX D/W Dr. Santos Fuentes <Rony Graham - Last Filed: 12/15/17 20:39> Results - Vital Signs Recent Vital Signs: Last Vital Signs Temp 98 F 10/18/18 14:00 Pulse 71 12/14/17 14:00 Resp 20 12/14/17 14:00 BP 129/64 12/14/17 14:00 Pulse Ox 99 12/14/17 14:00 - Labs Result Diagrams: 12/14/17 07:00 12/14/17 07:00 Labs: Laboratory Results - last 24 hr 12/14/17 07:00 HIV-1 Antibody TEST NOT PERFORMED HIV-2 Antibody TEST NOT PERFORMED HIV 1&2 Ag/Ab, 4th Gen Nonreactive Assessment & Plan - Assessment and Plan (Free Text) Plan: This consult done under my direct supervision Richard Graham MD FACS
--- NOTE | 2017-12-14 00:38 | CP.PCM.HP ---
<JosueBrent - Last Filed: 12/14/17 04:14> History of Present Illness - History of Present Illness History of Present Illness: Brent Salas, PGY-1 History and Physical for Hospitalist Service CC: L arm pain HPI: 27 year old male, with a PMHx of IVDA, polysubstance abuse (heroin, cocaine, marijuana) admitted for left arm abscess and cellulitis. Patient states that he noticed, what looked like a small pimple, on the anterolateral aspect of the proximal left forearm about 2 weeks ago. The area gradually became larger, erythematous, painful, and warm to touch. He rates pain as being 20/10. He reports applying warm compresses to the area for management, but experienced minimal improvement. 2 days ago, the area spontaneously began exuding purulent discharge and he developed associated fever and chills. Fever and chills resolved, but the area remained painful and continued to drain pus, prompting patient to present to the ED. Patient states that he drained a similar pimple like area on the anteripr proximal forearm 3 weeks ago, which resolved symptoms. At this time, he denies fever, chills, cough, congestion, N/V/D, palpitations, leg pain, change in urination. He reports unintentional weight loss of 20 pounds in 4-6 week time frame when he was using Heroin. No other acute complaints. Patient last used heroin 1.5 months ago, cocaine one week ago, and marijuana 2 days ago. Patient was going to methadone clinic, but stopped 10/29/2017. He has been going to [facility] [facility] in [place], a suboxone rehab program. He is prescribed suboxone on a weekly basis, taking 2 tablets a day. Today, patient took his morning suboxone dose only. PMHx: polysubstance abuse PSHx: denies Family Hx: denies Social hx: smokes a pack of cigarettes every 3 days, unemployed, no alcohol use PCP: none Present on Admission - Present on Admission Any Indicators Present on Admission: No Review of Systems - Review of Systems Review of Systems: 12 point ROS completed and negative except as described in HPI. Past Patient History - Infectious Disease Hx of Infectious Diseases: None - Past Social History Smoking Status: Light Smoker < 10 Cigarettes Daily - CARDIAC Hx Hypercholesterolemia: Yes - PULMONARY Hx Asthma: Yes - NEUROLOGICAL Hx Neurological Disorder: No - HEENT Hx HEENT Problems: No - RENAL Hx Chronic Kidney Disease: No - ENDOCRINE/METABOLIC Hx Endocrine Disorders: No - HEMATOLOGICAL/ONCOLOGICAL Hx Blood Disorders: No - INTEGUMENTARY Hx Dermatological Problems: No - MUSCULOSKELETAL/RHEUMATOLOGICAL Hx Musculoskeletal Disorders: No - GASTROINTESTINAL Other/Comment: Stomach virus - GENITOURINARY/GYNECOLOGICAL Hx Genitourinary Disorders: No - PSYCHIATRIC Hx Psychophysiologic Disorder: No Hx Substance Use: Yes (clean for 30 days) - SURGICAL HISTORY Hx Surgeries: No - ANESTHESIA Hx Anesthesia: No Meds Allergies/Adverse Reactions: Allergies Allergy/AdvReac Type Severity Reaction Status Date / Time No Known Allergies Allergy Verified 12/13/17 20:01 Physical Exam - Constitutional Appears: Well, Non-toxic, No Acute Distress - Head Exam Head Exam: ATRAUMATIC, NORMOCEPHALIC - Eye Exam Eye Exam: EOMI, Normal appearance Pupil Exam: PERRL - ENT Exam ENT Exam: Mucous Membranes Moist - Neck Exam Neck exam: Positive for: Full Rom. Negative for: Normal Inspection (tattoos), Tenderness - Respiratory Exam Respiratory Exam: Clear to Auscultation Bilateral, NORMAL BREATHING PATTERN. absent: Accessory Muscle Use, Chest Wall Tenderness, Rales, Rhonchi, Wheezes Additional comments: tattoos throughout chest - Cardiovascular Exam Cardiovascular Exam: RRR, +S1, +S2. absent: Clicks, Gallop, Rubs, Systolic Murmur - GI/Abdominal Exam GI & Abdominal Exam: Hypoactive Bowel Sounds, Soft. absent: Distended, Firm, Guarding, Rebound, Tenderness - Extremities Exam Additional comments: 4x6 inch abscess over anterior L bicep with yellow discharge 2x3 healed indurated abscess on R medial forearm - Back Exam Back exam: NORMAL INSPECTION. absent: CVA tenderness (L), CVA tenderness (R) - Neurological Exam Neurological exam: Alert, Oriented x3 - Psychiatric Exam Psychiatric exam: Normal Affect, Normal Mood - Skin Skin Exam: Dry, Normal Color, Warm Results - Vital Signs Recent Vital Signs: Last Vital Signs Temp 99.1 F 12/13/17 20:00 Pulse 102 H 12/13/17 20:00 Resp 18 12/13/17 20:00 BP 142/77 12/13/17 20:00 Pulse Ox 99 12/13/17 20:00 - Labs Result Diagrams: 12/13/17 21:00 12/13/17 21:00 Labs: Laboratory Results - last 24 hr 12/13/17 12/13/17 12/13/17 21:00 21:00 21:00 WBC 9.0 D RBC 4.38 Hgb 9.7 L Hct 31.5 L MCV 71.9 L MCH 22.1 L MCHC 30.8 L RDW 14.7 H Plt Count 555 H MPV 9.6 Gran % 65.8 Lymph % (Auto) 24.7 [place] % (Auto) 7.9 H Eos % (Auto) 1.4 L Baso % (Auto) 0.2 Gran # 5.94 Lymph # (Auto) 2.2 [place] # (Auto) 0.7 H Eos # (Auto) 0.1 Baso # (Auto) 0.02 pO2 36 VBG pH 7.32 VBG pCO2 62.0 H VBG HCO3 31.9 H VBG Total CO2 33.8 H VBG O2 Sat (Calc) 68.9 H VBG Base Excess 4.0 H VBG Potassium 4.0 Sodium 139.0 140 Chloride 105.0 102 Glucose 92 Lactate 0.9 FiO2 21.0 Potassium 4.3 Carbon Dioxide 29 Anion Gap 13 BUN 15 Creatinine 1.0 Est GFR ( Amer) > 60 Est GFR (Non-Af Amer) > 60 Random Glucose 97 Calcium 8.9 Venous Blood Potassium 4.0 Assessment & Plan - Assessment and Plan (Free Text) Assessment: Assessment: 27 year old male, with a PMHx of IVDA, polysubstance abuse (heroin, cocaine, marijuana) admitted for left arm abscess, actively draining pus. Plan: Left arm abscess with surrounding cellulitis Lactate 0.9 Given 1 dose of vanc in ED Resume Vancomycin 1mg Q12 Start Zosyn Panculture Surgery consulted- Dr. Graham NPO for possible Incision and drainage on 12/14/2017 IV fluids D51/2NS @ 140 cc/hr F/u on blood and wound cultures ID consulted- Dr. Harrison- recommendations appreciated CT upper extremity with contrast: preliminary read: Diffuse subcutaneous soft tissue swelling is noted especially at the antecubital area consistent with cellulitis; no evidence of abscess or osteomyelitis; official read pending F/u Forearm x-ray to r/o OM Microcytic anemia Hgb 9.7 MCV 71.9 F/u iron studies (ferritin), mag, phos, folate, vit b12, retic count, periph smear Continue to trend Thrombocytosis 555 Continue to trend clinical course and platelet count, most likely secondary to microcytic anemia Substance abuse EKG NSR @ 86 bpm, no ST or T wave changes, QTC 440 f/u UDS f/u Alcohol serum F/U Echo for ? vegetations GI/DVT PPx SCDs Protonix 40 Dispo: reach out to clinic ([facility] in [place]) to obtain Suboxone dosage and frequency Patient seen, case reviewed and plan approved by Dr. Rosario. Brent Salas, PGY-1 <Blaine Rosario - Last Filed: 12/14/17 06:47> Results - Vital Signs Recent Vital Signs: Last Vital Signs Temp 100.1 F H 12/14/17 02:20 Pulse 78 12/14/17 01:17 Resp 20 12/14/17 03:31 BP 138/92 H 12/14/17 01:17 Pulse Ox 100 12/14/17 01:17 - Labs Result Diagrams: 12/13/17 21:00 12/13/17 21:00 Labs: Laboratory Results - last 24 hr 12/13/17 12/13/17 12/13/17 21:00 21:00 21:00 WBC 9.0 D RBC 4.38 Hgb 9.7 L Hct 31.5 L MCV 71.9 L MCH 22.1 L MCHC 30.8 L RDW 14.7 H Plt Count 555 H MPV 9.6 Gran % 65.8 Lymph % (Auto) 24.7 [place] % (Auto) 7.9 H Eos % (Auto) 1.4 L Baso % (Auto) 0.2 Gran # 5.94 Lymph # (Auto) 2.2 [place] # (Auto) 0.7 H Eos # (Auto) 0.1 Baso # (Auto) 0.02 Retic Count PT INR APTT pO2 36 VBG pH 7.32 VBG pCO2 62.0 H VBG HCO3 31.9 H VBG Total CO2 33.8 H VBG O2 Sat (Calc) 68.9 H VBG Base Excess 4.0 H VBG Potassium 4.0 Sodium 139.0 140 Chloride 105.0 102 Glucose 92 Lactate 0.9 FiO2 21.0 Potassium 4.3 Carbon Dioxide 29 Anion Gap 13 BUN 15 Creatinine 1.0 Est GFR ( Amer) > 60 Est GFR (Non-Af Amer) > 60 Random Glucose 97 Calcium 8.9 Iron TIBC % Saturation Venous Blood Potassium 4.0 Urine Color Urine Appearance Urine pH Ur Specific [place] Urine Protein Urine Glucose (UA) Urine Ketones Urine Blood Urine Nitrate Urine Bilirubin Urine Urobilinogen Ur Leukocyte Esterase Urine Opiates Screen Urine Methadone Screen Ur Barbiturates Screen Ur Phencyclidine Scrn Ur Amphetamines Screen U Benzodiazepines Scrn U Oth Cocaine Metabols U Cannabinoids Screen Alcohol, Quantitative 12/13/17 12/13/17 12/13/17 21:00 21:00 21:00 WBC RBC Hgb Hct MCV MCH MCHC RDW Plt Count MPV Gran % Lymph % (Auto) [place] % (Auto) Eos % (Auto) Baso % (Auto) Gran # Lymph # (Auto) [place] # (Auto) Eos # (Auto) Baso # (Auto) Retic Count 1.21 PT 13.9 H INR 1.21 APTT 31.4 pO2 VBG pH VBG pCO2 VBG HCO3 VBG Total CO2 VBG O2 Sat (Calc) VBG Base Excess VBG Potassium Sodium Chloride Glucose Lactate FiO2 Potassium Carbon Dioxide Anion Gap BUN Creatinine Est GFR ( Amer) Est GFR (Non-Af Amer) Random Glucose Calcium Iron 30 L TIBC 280 % Saturation 11 L Venous Blood Potassium Urine Color Urine Appearance Urine pH Ur Specific [place] Urine Protein Urine Glucose (UA) Urine Ketones Urine Blood Urine Nitrate Urine Bilirubin Urine Urobilinogen Ur Leukocyte Esterase Urine Opiates Screen Urine Methadone Screen Ur Barbiturates Screen Ur Phencyclidine Scrn Ur Amphetamines Screen U Benzodiazepines Scrn U Oth Cocaine Metabols U Cannabinoids Screen Alcohol, Quantitative 12/13/17 12/14/17 12/14/17 21:00 03:50 03:50 WBC RBC Hgb Hct MCV MCH MCHC RDW Plt Count MPV Gran % Lymph % (Auto) [place] % (Auto) Eos % (Auto) Baso % (Auto) Gran # Lymph # (Auto) [place] # (Auto) Eos # (Auto) Baso # (Auto) Retic Count PT INR APTT pO2 VBG pH VBG pCO2 VBG HCO3 VBG Total CO2 VBG O2 Sat (Calc) VBG Base Excess VBG Potassium Sodium Chloride Glucose Lactate FiO2 Potassium Carbon Dioxide Anion Gap BUN Creatinine Est GFR ( Amer) Est GFR (Non-Af Amer) Random Glucose Calcium Iron TIBC % Saturation Venous Blood Potassium Urine Color Yellow Urine Appearance Clear Urine pH 6.0 Ur Specific [place] 1.020 Urine Protein Negative Urine Glucose (UA) Negative Urine Ketones Negative Urine Blood Negative Urine Nitrate Negative Urine Bilirubin Negative Urine Urobilinogen 0.2 Ur Leukocyte Esterase Negative Urine Opiates Screen Positive H Urine Methadone Screen Negative Ur Barbiturates Screen Negative Ur Phencyclidine Scrn Negative Ur Amphetamines Screen Negative U Benzodiazepines Scrn Negative U Oth Cocaine Metabols Positive H U Cannabinoids Screen Positive H Alcohol, Quantitative < 10 Attending/Attestation - Attestation I have personally seen and examined this patient.: Yes I have fully participated in the care of the patient.: Yes I have reviewed all pertinent clinical information: Yes
[2017-12-14 01:30] LABS: IRON 30 ug/dL (45-180)
[2017-12-14 01:40] LABS: % IRON SATURATION 11 % (20-55); TOTAL IRON BINDING CAPACITY 280 ug/dL (261-462)
[2017-12-14] MEDS ORDERED: Dextrose 5%/0.45% NS 1,000 ML IV SCH (01:45)
[2017-12-14] MEDS: Morphine 2 mg/ml ISec IVP PRN ×2 (01:57→06:45)
[2017-12-14 02:18] LABS: INR 1.21; PROTHROMBIN TIME 13.9 SECONDS (9.4-12.5)
[2017-12-14 02:26] LABS: PARTIAL THROMBOPLASTIN TIME 31.4 Seconds (25.1-36.5)
[2017-12-14] MEDS ORDERED: Sodium Chloride 0.9% 1,000 ML IV SCH (02:30)
[2017-12-14] MEDS ORDERED: Influenza Vaccine 60 mcg/0.5 mL SYR (4YR UP) IM ONE (03:31)
[2017-12-14] MEDS ORDERED: Pneumococcal 23-Valent Vaccine IM ONE (03:31)
[2017-12-14 03:35] VITALS: RESP 20
[2017-12-14 04:19] LABS: URINE BILIRUBIN NEGATIVE (NEGATIVE); URINE BLOOD NEGATIVE (NEGATIVE); URINE GLUCOSE (UA) NEGATIVE (NEGATIVE); URINE LEUKOCYTE ESTERASE NEGATIVE Leu/uL (NEGATIVE); URINE PROTEIN NEGATIVE mg/dL (<30 mg/dL); URINE UROBILINOGEN 0.2 E.U./dL (<1 E.U./dL)
[2017-12-14 04:29] LABS: URINE APPEARANCE CLEAR (CLEAR); URINE COLOR YELLOW (YELLOW)
[2017-12-14 04:55] LABS: BARBITURATES, UR NEGATIVE (NEGATIVE); BENZODIAZEPINES, UR NEGATIVE (NEGATIVE); OPIATES, UR POSITIVE (NEGATIVE); PHENCYCLIDINE, UR NEGATIVE (NEGATIVE)
[2017-12-14] MEDS ORDERED: Pantoprazole 40 mg EC Tab PO SCH (06:00)
[2017-12-14 07:20] LABS: BASO # 0.03 K/mm3 (0.0-2.0); BASO % 0.4 % (0.0-3.0); EOS # 0.1 (0.0-0.7); EOS % 1.6 % (1.5-5.0); GRAN # 4.41 (1.4-6.5); GRAN % 55.9 % (50.0-68.0); HEMOGLOBIN 8.8 g/dL (14.0-18.0); LYMPH # 2.7 (1.2-3.4); LYMPH % 33.6 % (22.0-35.0); MEAN CELL VOLUME 71.6 fl (80.0-105.0); MEAN CORPUSCULAR HEMOGLOBIN 21.9 pg (25.0-35.0); MEAN CORPUSCULAR HGB CONC 30.6 g/dl (31.0-37.0); MONO # 0.7 (0.1-0.6); MONO % 8.5 % (1.0-6.0); RBC 4.02 10^6/uL (3.5-6.1); RED CELL DISTRIBUTION WIDTH 15.1 % (11.5-14.5); WHITE BLOOD COUNT 7.9 10^3/ul (4.5-11.0)
[2017-12-14 07:53] LABS: ALB/GLOB RATIO 0.9 (1.1-1.8); ALBUMIN 3.7 g/dL (3.0-4.8); ALT/SGPT 23 U/L (7-56); AST/SGOT 21 U/L (17-59); BLOOD UREA NITROGEN 16 mg/dL (7-21); CALCIUM 8.8 mg/dL (8.4-10.5); GFR NON-AFRICAN AMERICAN > 60
--- NOTE | 2017-12-14 09:08 | CT ---
Date of service: 12/13/2017 PROCEDURE: CT of the left upper arm with contrast HISTORY: abcess COMPARISON: TECHNIQUE: 100 cc of Omnipaque 350 were injected Radiation dose: Total exam DLP = 1593.67 mGy-cm. This CT exam was performed using one or more of the following dose reduction techniques: Automated exposure control, adjustment of the mA and/or kV according to patient size, and/or use of iterative reconstruction technique. FINDINGS: There is subcutaneous edema especially in the region of the antecubital fossa. Findings are consistent with cellulitis. There is no evidence of abscess. There are no bony abnormalities IMPRESSION: Negative study
[2017-12-14] MEDS ORDERED: Piperacillin/Tazobact 3.375 gm 100 ML IVPB SCH (10:00)
[2017-12-14] MEDS ORDERED: Vancomycin 1gm in NS 250ml 1 GM/250 ML BAG IVPB SCH (10:00)
--- NOTE | 2017-12-14 10:05 | CARD ---
APPROVED REPORT Date of service: 12/14/2017 EKG Measurement Heart [id number] <Conclusion> Normal sinus rhythm Normal ECG
[2017-12-14] MEDS ORDERED: Lidocaine 1% Inj (20ml) ONE (11:12)
[2017-12-14] MEDS ORDERED: Midazolam 2 MG/2 ML VIAL ONE (11:12)
[2017-12-14] MEDS ORDERED: Propofol 10 mg/ml Inj (20 ML) ONE (11:12)
[2017-12-14] MEDS ORDERED: Bupivacaine 0.5% 50 ML IJ ONE (11:21)
[2017-12-14] MEDS: Vancomycin 1 g Inj ONE ×2 (11:28→11:30)
[2017-12-14 12:10] LABS: FOLATE 7.1 ng/mL
[2017-12-14] MEDS ORDERED: HYDROmorphone 0.5 mg/0.5 ml ISec IVP PRN ×2 (12:10→12:13)
[2017-12-14] MEDS ORDERED: Lactated Ringer's 1,000 ML IV SCH (12:15)
--- NOTE | 2017-12-14 12:18 | PCM.SURG1 ---
Surgeon's Initial Post Op Note - Surgeon's Notes Surgeon: Dr. Graham Online Merchandising Coordinator: Dr. Esteves Type of Anesthesia: General Endo Pre-Operative Diagnosis: left forearm abscess Operative Findings: see operative report Post-Operative Diagnosis: see operative report Operation Performed: Incision and drainage of left forearm abscess Specimen/Specimens Removed: purulent fluid Estimated Blood Loss: EBL {In ML}: 20 Blood Products Given: N/A Drains Used: No Drains Date of Surgery/Procedure: 12/14/17 Time of Surgery/Procedure: 12:18
[2017-12-14] MEDS ORDERED: HYDROmorphone 0.5 mg/0.5 ml ISec IVP ONE ×5 (12:20→13:25)
[2017-12-14] MEDS ORDERED: HYDROmorphone 0.5 mg/0.5 ml ISec ONE ×5 (12:22→13:23)
--- NOTE | 2017-12-14 13:42 | RAD ---
Date of service: 12/13/2017 PROCEDURE: Radiographs of the Left Forearm HISTORY: Look for retained needle COMPARISON: None available. TECHNIQUE: Frontal and lateral views obtained. FINDINGS: BONES: No fracture or destructive lesion. JOINT SPACES: Unremarkable. OTHER FINDINGS: No evidence of retained needle IMPRESSION: Unremarkable radiographs of the left forearm.
[2017-12-14 16:49] LABS: HEPATITIS B SURFACE AG Negative (NEGATIVE)
[2017-12-14 16:56] LABS: HEPATITIS A IGM NEGATIVE (NEGATIVE); HEPATITIS B CORE AB NEGATIVE (NEGATIVE)
[2017-12-14 17:07] VITALS: BP 129/64; PULSE 71; TEMP 98; O2SAT 99
[2017-12-14 17:07] LABS: HEPATITIS C ANTIBODY NEGATIVE (NEGATIVE)
--- NOTE | 2017-12-15 06:52 | CP.PCM.PCO ---
Physician Communication Note - Physician Communication Note Physician Communication Note: Pt Eloped AMA(unsigned)w/o RX/packing still in
--- NOTE | 2017-12-18 11:32 | CON ---
DATE: 12/14/2017 The patient is seen in bed, in no acute distress, in room 565. CHIEF COMPLAINT: Left arm pain times several days. HISTORY OF PRESENT ILLNESS: This is a 27-year-old male, who is admitted with past medical history of active intravenous drug abuse and shooting up in his arm, and he came in with an arm abscess, low-grade fevers, and no chills now. He is in considerable pain that started up this morning and no abdominal pain, diarrhea, or constipation. PAST MEDICAL HISTORY: Significant for IVDA and asthma. PAST SURGICAL HISTORY: Noncontributory. ALLERGIES: THE PATIENT HAS NO KNOWN ALLERGIES. MEDICATIONS: At home, the patient is on Zofran and Motrin. PHYSICAL EXAMINATION: GENERAL: He is in bed, in no acute distress, nontoxic; however, in significant pain. VITAL SIGNS: Temperature of 100.1, respiratory rate of 20, and heart rate is 102. HEENT: Unremarkable. NECK: Supple. LUNGS: Decreased breath sounds. CARDIAC: Normal S1 and S2. ABDOMEN: Soft and nontender. EXTREMITIES: Examination of arm reveals significant discharge and swelling and erythema. LABORATORY DATA: Laboratory examination reveals a white count of 9. Chemistries are noted and LFTs are normal. Urinalysis is negative. Toxicology is noted with positive opiates and cannabinoids and cocaine. Hepatitis profile is negative. Microbiology reveals the blood cultures are negative and the wound cultures are pending, and the patient also had an HIV test, which is pending. Other wound cultures are pending. The patient is currently on vancomycin. The patient was taken to the OR today for incision and drainage of the abscess of the left arm. We will make further recommendations upon availability of initial results. I will follow closely with you. Check on the OR cultures and HIV. Severo Harrison MD
== END 2017-12-14 22:37 | disposition left against medical advice (07) | DRG 277 ==
LOC: ED 19:47 → ERH 23:19 → 5RNO 12-14 01:25
PROVIDERS: ADMIT Internal Medicine; ATTEND Internal Medicine
PROC: 0J9F3ZX Drainage of Left Upper Arm Subcutaneous Tissue and Fascia, Percutaneous Approach, Diagnostic (ICD-10-PCS; principal; 2017-12-14 11:00)
DX: L02.414 Cutaneous abscess of left upper limb (principal); F14.10 Cocaine abuse, uncomplicated; F11.10 Opioid abuse, uncomplicated; L03.114 Cellulitis of left upper limb; F17.210 Nicotine dependence, cigarettes, uncomplicated; F12.10 Cannabis abuse, uncomplicated; E78.00 Pure hypercholesterolemia, unspecified; J45.909 Unspecified asthma, uncomplicated

== ENCOUNTER 2017-12-17 16:44 | Emergency (ER) | payer MEDICAID ==
[2017-12-17 16:58] VITALS: PULSE 73; RESP 18
--- NOTE | 2017-12-17 17:25 | ED PDOC ---
Arrival/HPI - General Historian: Patient - History of Present Illness Narrative History of Present Illness (Text): 12/17/17 17:22 27yo male with pmhx of IVDA who present with wound check to his left proximal forearm. Patient was seen here and admitted for left forearm abscess/cellulitis. He was taken to the OR and had I & D. Patient left AMA, without signing or any antibiotics. He states he came to ED today for the wound to be check. he denies fever, chills, nausea, pain to the area, any other complaint. <Shon Ratliff A - Last Filed: 12/17/17 18:01> <Dimitry Whittaker - Last Filed: 12/18/17 11:14> - General Chief Complaint: Abnormal Skin Integrity Time Seen by Provider: 12/17/17 17:01 Past Medical History - Provider Review Nursing Documentation Reviewed: Yes - Past History Past History: No Previous - Infectious Disease Hx of Infectious Diseases: None - Pulmonary Hx Asthma: Yes - Neurological Hx Neurological Disorder: No - HEENT Hx HEENT Disorder: No - Renal Hx Renal Disorder: No - Endocrine/Metabolic Hx Endocrine Disorders: No - Hematological/Oncological Hx Blood Transfusions: No - Integumentary Hx Dermatological Disorder: No - Musculoskeletal/Rheumatological Hx Musculoskeletal Disorders: No - Gastrointestinal Other/Comment: Stomach virus - Genitourinary/Gynecological Hx Genitourinary Disorders: No - Psychiatric Hx Psychophysiologic Disorder: No Hx Substance Use: Yes (clean for 30 days) - Surgical History Other/Comment: Right arm I&D - Anesthesia Hx Anesthesia: No <Shon Ratliff A - Last Filed: 12/17/17 18:01> Family/Social History - Physician Review Nursing Documentation Reviewed: Yes Family/Social History: Unknown Family HX Smoking Status: Light Smoker < 10 Cigarettes Daily Hx Alcohol Use: No (Pt denies but has previous ER admission for ETOH) Hx Substance Use: Yes (clean for 30 days) Substance used: heroin, cocaine, weed <Shon Ratliff A - Last Filed: 12/17/17 18:01> Allergies/Home Meds <Shon Ratliff A - Last Filed: 12/17/17 18:01> <Dimitry Whittaker - Last Filed: 12/18/17 11:14> Allergies/Adverse Reactions: Allergies No Known Allergies Allergy (Verified 12/17/17 16:59) Review of Systems - Physician Review All systems were reviewed & negative as marked: Yes - Review of Systems Constitutional: Normal Eyes: Normal ENT: Normal Respiratory: Normal Cardiovascular: Normal Gastrointestinal: Normal Genitourinary Male: Normal Musculoskeletal: Normal Skin: Other (Left forearm wound check) Neurological: Normal Endocrine: Normal Hemo/Lymphatic: Normal Psychiatric: Normal <Diru,Happiness A - Last Filed: 12/17/17 18:01> Physical Exam Vital Signs Reviewed: Yes Vital Signs Temp Pulse Resp BP Pulse Ox 12/17/17 16:56 98.4 F 73 18 119/63 99 Temperature: Afebrile Blood Pressure: Normal Pulse: Regular Respiratory Rate: Normal Appearance: Positive for: Well-Appearing, Non-Toxic, Comfortable Pain Distress: None Mental Status: Positive for: Alert and Oriented X 3 - Systems Exam Head: Present: Atraumatic, Normocephalic Pupils: Present: PERRL Extroacular Muscles: Present: EOMI Conjunctiva: Present: Normal Mouth: Present: Moist Mucous Membranes Neck: Present: Normal Range of Motion Respiratory/Chest: Present: Clear to Auscultation, Good Air Exchange. No: Respiratory Distress, Accessory Muscle Use Cardiovascular: Present: Regular Rate and Rhythm, Normal S1, S2. No: Murmurs Abdomen: No: Tenderness, Distention, Peritoneal Signs Back: Present: Normal Inspection Upper Extremity: Present: Normal Inspection. No: Cyanosis, Edema Lower Extremity: Present: Normal Inspection. No: Edema Neurological: Present: GCS=15, CN II-XII Intact, Speech Normal Skin: Present: Warm, Dry, Normal Color, Other (Packing noted in place to left anteriorlateral forearm with surrounding induration. Mild tenderness on palpation. No Erythema. No crepitus.). No: Rashes Psychiatric: Present: Alert, Oriented x 3, Normal Insight, Normal Concentration <Diru,Happiness A - Last Filed: 12/17/17 18:01> Vital Signs Temp Pulse Resp BP Pulse Ox 12/17/17 18:27 98.2 F 73 18 118/62 100 12/17/17 16:56 98.4 F 73 18 119/63 99 <Dimitry Whittaker - Last Filed: 12/18/17 11:14> Medical Decision Making ED Course and Treatment: 12/17/17 18:01 PT in ED for stated history. He was afebirle. Had packing in place Case was DW the vice president research Nisha. she saw pt in ED and took out the packing and redressed wound Pt was given Keflex rx. She DC with Dr. Hernandez who recommends that pt be DC home with the keflex and advised to f/u with him if he wants or see his PMD <Shon Ratliff A - Last Filed: 12/17/17 18:01> - PA / GUNNERY/ORDNANCE OFFICER / Resident Statement / has reviewed & agrees with the documentation as recorded. <Dimitry Whittaker - Last Filed: 12/18/17 11:14> Disposition/Present on Arrival - Present on Arrival Any Indicators Present on Arrival: No History of DVT/PE: No History of Uncontrolled Diabetes: No Urinary Catheter: No History of Decub. Ulcer: No History Surgical Site Infection Following: None - Disposition Have Diagnosis and Disposition been Completed?: Yes Disposition Time: 17:35 Patient Plan: Discharge <Shon Ratliff - Last Filed: 12/17/17 18:01> <Dimitry Whittaker - Last Filed: 12/18/17 11:14> - Disposition Diagnosis: Visit for wound check Disposition: HOME/ ROUTINE Condition: STABLE Discharge Instructions (ExitCare): Wound Care (DC) Additional Instructions: Follow up with Surgeon, Dr. Graham Return to ED for any symptom Prescriptions: Cephalexin [Keflex] 500 mg PO QID #40 capsule Referrals: Ned Henry MD [Primary Care Provider] - Follow up with primary Rony Graham MD [Staff Provider] - Follow up with primary Forms: [employer] ([place])
[2017-12-17 18:31] VITALS: BP 118/62; TEMP 98.2; O2SAT 100
== END 2017-12-17 18:27 | disposition home or self-care (01) ==
LOC: ED 16:44
DX: Z48.00 Encounter for change or removal of nonsurgical wound dressing (principal); F17.210 Nicotine dependence, cigarettes, uncomplicated